=== PATIENT | male | born 1960 | race Caucasian/White ===

== ENCOUNTER 2018-03-16 14:22 | Observation (INO) | payer OTHER ==
[2018-03-16] MEDS ORDERED: Sodium Chloride 0.9% 10 ML Syringe FLUSH PRN (14:32)
[2018-03-16] MEDS ORDERED: Morphine 2 MG/ML Syringe IVPUSH ONE (14:32)
[2018-03-16] MEDS ORDERED: Sodium Chloride 0.9% 2.5 ML Syringe FLUSH PRN (14:32)
[2018-03-16] MEDS ORDERED: Nitroglycerin 2% Oint 1 GM UD Packet TOP ONE (14:32)
[2018-03-16] MEDS ORDERED: Ondansetron 4 MG/2 ML SDV IVPUSH ONE (14:32)
[2018-03-16] MEDS ORDERED: Aspirin 81 MG Tab.Chew PO ONE (14:32)
[2018-03-16] MEDS ORDERED: Sodium Chloride 0.9% 1,000 ML IV SCH (14:45)
[2018-03-16 15:02] LABS: CHLORIDE,CL 102 mmol/L (98-107); SODIUM,NA 138 mmol/L (136-148)
--- NOTE | 2018-03-16 15:18 | CR ---
EXAMINATION: Portable chest radiograph. HISTORY: Shortness of breath. FINDINGS: The trachea is midline. The cardiomediastinal silhouette is within normal limits. No pulmonary infilt rates, effusions or pneumothorax. Osseous structures appear unremarkable. IMPRESSION: No acute cardiopulmonary process.
--- NOTE | 2018-03-16 15:34 | EDM.PDOC ---
ED HPI GENERAL MEDICAL PROBLEM - General Chief Complaint: Chest Pain Stated Complaint: CHEST PAIN Time Seen by Provider: 03/16/18 14:27 - History of Present Illness INITIAL COMMENTS - FREE TEXT/NARRATIVE: HISTORY AND PHYSICAL: History of present illness: Patient is 57-year-old male sent from the [place] [facility] for chest pain his history of COPD states the chest discomfort 2 weeks he equivocates regarding associated shortness breath palpitations nausea vomiting or other complaints his EKG has nonspecific changes and no prior for comparison Review of systems: As per history of present illness and below otherwise all systems reviewed and negative. Past medical history: As per history of present illness and as reviewed below otherwise noncontributory. Surgical history: As per history of present illness and as reviewed below otherwise noncontributory. Social history: No reported history of drug or alcohol abuse. Family history: As per history of present illness and as reviewed below otherwise noncontributory. Physical exam: HEENT: Atraumatic, normocephalic, pupils reactive, negative for conjunctival pallor or scleral icterus, mucous membranes moist, throat clear, neck supple, nontender, trachea midline. Lungs: Clear to auscultation, breath sounds equal bilaterally, chest nontender. Heart: S1S2, regular, negative for clicks, rubs, or JVD. Abdomen: Soft, nondistended, nontender. Negative for masses or hepatosplenomegaly. Negative for costovertebral tenderness. Pelvis: Stable nontender. Genitourinary: Deferred. Rectal: Deferred. Extremities: Atraumatic, negative for cords or calf pain. Neurovascular unremarkable. Neuro: Awake, alert, oriented. Cranial nerves II through XII unremarkable. Cerebellum unremarkable. Motor and sensory unremarkable throughout. Exam nonfocal. Diagnostics: CBC CMP troponin PT/INR chest x-ray EKG Therapeutics: IV O2 monitor aspirin 324 mg by mouth Nitropaste 1 inch morphine sulfate 2 mg IV Zofran 4 mg IV Impression: #1 Chest pain #2 history of COPD Definitive disposition and diagnosis as appropriate pending reevaluation and review of above. chest Pain Score (Numeric/FACES): 4 - Related Data Allergies Allergy/AdvReac Type Severity Reaction Status Date / Time codeine Allergy Nausea and Verified 03/16/18 14:35 Vomiting Home Meds: Home Meds Albuterol [Proventil HFA] 90 mcg INH ASDIRECTED PRN 03/16/18 [History] Calcium Carbonate/Vitamin D3 [Calcium Carb 500 MG] 200 mg CHEW DAILY 03/16/18 [ History] Clotrimazole [Clotrimazole 1%] 1 dose TOP DAILY 03/16/18 [History] Furosemide 40 mg PO DAILY 03/16/18 [History] Ipratropium [place] [Atrovent Hfa] 17 mcg INH ASDIRECTED PRN 03/16/18 [History] Ketotifen [Ketotifen 0.025% Ophth Soln] 1 drop EYEBOTH DAILY 03/16/18 [History] Metoprolol Tartrate [Lopressor] 50 mg PO BID 03/16/18 [History] Mometasone Furoate [Asmanex] 220 mcg INH ASDIRECTED PRN 03/16/18 [History] Potassium Chloride 10 meq PO DAILY 03/16/18 [History] amLODIPine [Norvasc] 5 mg PO DAILY 03/16/18 [History] atorvaSTATin [Lipitor] 40 mg PO DAILY 03/16/18 [History] Past Medical History HEENT History: Reports: None Cardiovascular History: Reports: Hypertension Respiratory History: Reports: COPD Gastrointestinal History: Reports: None Genitourinary History: Reports: None Musculoskeletal History: Reports: None Neurological History: Reports: None Psychiatric History: Reports: None Endocrine/Metabolic History: Reports: Other (See Below) Other Endocrine/Metabolic History: pre-diabetic Hematologic History: Reports: None Immunologic History: Reports: None Oncologic (Cancer) History: Reports: None Dermatologic History: Reports: None - Infectious Disease History Infectious Disease History: Reports: Chicken Pox, MRSA - Past Surgical History Head Surgeries/Procedures: Reports: None HEENT Surgical History: Reports: None Cardiovascular Surgical History: Reports: None Respiratory Surgical History: Reports: None GI Surgical History: Reports: None Male Surgical History: Reports: None Endocrine Surgical History: Reports: None Neurological Surgical History: Reports: None Musculoskeletal Surgical History: Reports: None Oncologic Surgical History: Reports: None Dermatological Surgical History: Reports: None Social & Family History - Family History Family Medical History: Noncontributory - Tobacco Use Smoking Status *Q: Current Every Day Smoker Years of Tobacco use: 45 Packs/Tins Daily: 0.5 - Caffeine Use Caffeine Use: Reports: Coffee - Recreational Drug Use Recreational Drug Use: No ED ROS GENERAL - Review of Systems Review Of Systems: ROS reveals no pertinent complaints other than HPI. ED EXAM, GENERAL - Physical Exam Exam: See Below (See dictation) Course - Vital Signs Last Recorded V/S: Last Vital Signs Temp 36.0 C 03/16/18 14:35 Pulse 77 03/16/18 14:35 Resp 20 03/16/18 14:35 BP 172/100 H 03/16/18 14:35 Pulse Ox 94 L 03/16/18 14:35 - Orders/Labs/Meds Orders: Active Orders 24 hr Category Date Time Status Cardiac Monitoring [RC] . DIRECTED Care 03/16/18 14:30 Active EKG Documentation Completion [RC] STAT Care 03/16/18 14:30 Active Oxygen Therapy, ED [RC] ASDIRECTED Care 03/16/18 14:30 Active Pulse Oximetry [RC] ASDIRECTED Care 03/16/18 14:30 Active Sodium Chloride 0.9% [Normal Saline] 1,000 ml Med 03/16/18 14:45 Active IV STAT Sodium Chloride 0.9% [Saline Flush] Med 03/16/18 14:32 Active 10 ml FLUSH ASDIRECTED PRN Sodium Chloride 0.9% [Saline Flush] Med 03/16/18 14:32 Active 2.5 ml FLUSH ASDIRECTED PRN Saline Lock Insert [OM.PC] Stat Oth 03/16/18 14:30 Ordered Medication Orders Sodium Chloride (Normal Saline) 1,000 mls @ 125 mls/hr IV STAT KULDIP Last Admin: 03/16/18 14:54 Dose: 125 mls/hr Sodium Chloride (Saline Flush) 10 ml FLUSH ASDIRECTED PRN PRN Reason: Keep Vein Open Sodium Chloride (Saline Flush) 2.5 ml FLUSH ASDIRECTED PRN PRN Reason: Keep Vein Open Labs: Laboratory Tests 03/16/18 03/16/18 03/16/18 Range/Units 14:30 14:30 14:30 WBC 10.04 (4.0-11.0) K/uL RBC 5.16 (4.50-5.90) M/uL Hgb 16.5 (13.0-17.0) g/dL Hct 47.9 (38.0-50.0) % MCV 92.8 (80.0-98.0) fL MCH 32.0 (27.0-32.0) pg MCHC 34.4 (31.0-37.0) g/dL RDW Std Deviation 45.7 (28.0-62.0) fl RDW Coeff of Loren 14 (11.0-15.0) % Plt Count 214 (150-400) K/uL MPV 10.20 (7.40-12.00) fL Neut % (Auto) 61.7 (48.0-80.0) % Lymph % (Auto) 29.9 (16.0-40.0) % [place] % (Auto) 4.4 (0.0-15.0) % Eos % (Auto) 3.6 (0.0-7.0) % Baso % (Auto) 0.4 (0.0-1.5) % Neut # (Auto) 6.2 H (1.4-5.7) K/uL Lymph # (Auto) 3.0 H (0.6-2.4) K/uL [place] # (Auto) 0.4 (0.0-0.8) K/uL Eos # (Auto) 0.4 (0.0-0.7) K/uL Baso # (Auto) 0.0 (0.0-0.1) K/uL Nucleated RBC % 0.0 /100WBC Nucleated RBCs # 0 K/uL INR 0.95 Sodium 138 (136-148) mmol/L Potassium 3.9 (3.5-5.1) mmol/L Chloride 102 (98-107) mmol/L Carbon Dioxide 27.6 (21.0-32.0) mmol/L BUN 17 (7.0-18.0) mg/dL Creatinine 1.0 (0.8-1.3) mg/dL Est Cr Clr Drug Dosing 76.95 mL/min Estimated GFR (MDRD) > 60.0 ml/min Glucose 187 H (74-106) mg/dL Calcium 8.5 (8.5-10.1) mg/dL Total Bilirubin 0.3 (0.2-1.0) mg/dL AST 24 (15-37) IU/L ALT 51 (14-63) IU/L Alkaline Phosphatase 80 (46-116) U/L Troponin I < 0.050 (0.000-0.056) ng/mL B-Natriuretic Peptide (<100) PG/ML Total Protein 7.1 (6.4-8.2) g/dL Albumin 3.8 (3.4-5.0) g/dL Globulin 3.3 (2.0-3.5) g/dL Albumin/Globulin Ratio 1.2 L (1.3-2.8) 03/16/18 Range/Units 14:30 WBC (4.0-11.0) K/uL RBC (4.50-5.90) M/uL Hgb (13.0-17.0) g/dL Hct (38.0-50.0) % MCV (80.0-98.0) fL MCH (27.0-32.0) pg MCHC (31.0-37.0) g/dL RDW Std Deviation (28.0-62.0) fl RDW Coeff of Loren (11.0-15.0) % Plt Count (150-400) K/uL MPV (7.40-12.00) fL Neut % (Auto) (48.0-80.0) % Lymph % (Auto) (16.0-40.0) % [place] % (Auto) (0.0-15.0) % Eos % (Auto) (0.0-7.0) % Baso % (Auto) (0.0-1.5) % Neut # (Auto) (1.4-5.7) K/uL Lymph # (Auto) (0.6-2.4) K/uL [place] # (Auto) (0.0-0.8) K/uL Eos # (Auto) (0.0-0.7) K/uL Baso # (Auto) (0.0-0.1) K/uL Nucleated RBC % /100WBC Nucleated RBCs # K/uL INR Sodium (136-148) mmol/L Potassium (3.5-5.1) mmol/L Chloride (98-107) mmol/L Carbon Dioxide (21.0-32.0) mmol/L BUN (7.0-18.0) mg/dL Creatinine (0.8-1.3) mg/dL Est Cr Clr Drug Dosing mL/min Estimated GFR (MDRD) ml/min Glucose (74-106) mg/dL Calcium (8.5-10.1) mg/dL Total Bilirubin (0.2-1.0) mg/dL AST (15-37) IU/L ALT (14-63) IU/L Alkaline Phosphatase (46-116) U/L Troponin I (0.000-0.056) ng/mL B-Natriuretic Peptide 18 (<100) PG/ML Total Protein (6.4-8.2) g/dL Albumin (3.4-5.0) g/dL Globulin (2.0-3.5) g/dL Albumin/Globulin Ratio (1.3-2.8) Meds: Medications Generic Name Dose Route Start Last Admin Trade Name Freq PRN Reason Stop Dose Admin Sodium Chloride 1,000 mls @ 125 mls/hr 03/16/18 14:45 03/16/18 14:54 Normal Saline IV 125 mls/hr STAT KULDIP Administration Sodium Chloride 10 ml 03/16/18 14:32 Saline Flush FLUSH ASDIRECTED PRN Keep Vein Open Sodium Chloride 2.5 ml 03/16/18 14:32 Saline Flush FLUSH ASDIRECTED PRN Keep Vein Open Discontinued Medications Generic Name Dose Route Start Last Admin Trade Name Freq PRN Reason Stop Dose Admin Aspirin 324 mg 03/16/18 14:32 03/16/18 15:02 Aspirin PO 03/16/18 14:33 324 mg ONETIME ONE Administration Morphine Sulfate 2 mg 03/16/18 14:32 03/16/18 14:59 Morphine IVPUSH 03/16/18 14:33 2 mg ONETIME ONE Administration Nitroglycerin 1 gm 03/16/18 14:32 03/16/18 15:04 Nitro-Bid 2% TOP 03/16/18 14:33 1 gm ONETIME ONE Administration Ondansetron HCl 4 mg 03/16/18 14:32 03/16/18 14:56 Zofran IVPUSH 03/16/18 14:33 4 mg ONETIME ONE Administration Departure - Departure Time of Disposition: 15:33 Disposition: Refer to Observation Condition: Good Clinical Impression: Chest pain - Discharge Information Referrals: PCP,None [Primary Care Provider] - - My Orders Last 24 Hours: My Active Orders 03/16/18 14:30 Cardiac Monitoring [RC] . DIRECTED EKG Documentation Completion [RC] STAT Oxygen Therapy, ED [RC] ASDIRECTED Pulse Oximetry [RC] ASDIRECTED Saline Lock Insert [OM.PC] Stat 03/16/18 14:32 Sodium Chloride 0.9% [Saline Flush] 10 ml FLUSH ASDIRECTED PRN Sodium Chloride 0.9% [Saline Flush] 2.5 ml FLUSH ASDIRECTED PRN 03/16/18 14:45 Sodium Chloride 0.9% [Normal Saline] 1,000 ml IV STAT - Assessment/Plan Last 24 Hours: My Active Orders 03/16/18 14:30 Cardiac Monitoring [RC] . DIRECTED EKG Documentation Completion [RC] STAT Oxygen Therapy, ED [RC] ASDIRECTED Pulse Oximetry [RC] ASDIRECTED Saline Lock Insert [OM.PC] Stat 03/16/18 14:32 Sodium Chloride 0.9% [Saline Flush] 10 ml FLUSH ASDIRECTED PRN Sodium Chloride 0.9% [Saline Flush] 2.5 ml FLUSH ASDIRECTED PRN 03/16/18 14:45 Sodium Chloride 0.9% [Normal Saline] 1,000 ml IV STAT
[2018-03-16] MEDS ORDERED: Bacitracin Oint 1 GM U/D Packet TOP ONE (15:38)
[2018-03-16] MEDS ORDERED: Albuterol/Ipratropium 3.0-0.5 MG/3 ML Neb Soln NEB PRN (16:27)
[2018-03-16] MEDS ORDERED: Ondansetron 4 MG/2 ML SDV IVPUSH PRN (16:27)
[2018-03-16] MEDS ORDERED: Enoxaparin 40 MG/0.4 ML Syringe SUBCUT SCH (16:30)
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
[2018-03-16] MEDS: Insulin Aspart 100 Units/ML 3 ML Pen SUBCUT SCH (17:15)
[2018-03-16] MEDS ORDERED: Albuterol 8 GM Inhaler INH PRN (17:48)
[2018-03-16] MEDS: Loratadine 10 MG Tab PO SCH (18:45)
[2018-03-16] MEDS: Acetaminophen 325 MG Tab PO PRN (20:19)
[2018-03-16] MEDS: Metoprolol Tartrate 50 MG Tab PO SCH (20:20)
[2018-03-17] MEDS: Acetaminophen 325 MG Tab PO PRN (06:16)
[2018-03-17] MEDS: Insulin Aspart 100 Units/ML 3 ML Pen SUBCUT SCH (06:38)
[2018-03-17] MEDS ORDERED: Furosemide 40 MG Tab PO SCH (09:00)
[2018-03-17] MEDS ORDERED: Aspirin 81 MG Tab.Chew PO SCH (09:00)
[2018-03-17] MEDS ORDERED: amLODIPine 5 MG Tab PO SCH (09:00)
[2018-03-17] MEDS ORDERED: atorvaSTATin 40 MG Tab PO SCH (09:00)
[2018-03-17] MEDS ORDERED: Potassium Chloride 10 MEQ Tab.ER PO SCH (09:00)
[2018-03-17] MEDS: Loratadine 10 MG Tab PO SCH (09:48)
[2018-03-17] MEDS: Metoprolol Tartrate 50 MG Tab PO SCH (09:53)
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
== END 2018-03-17 11:55 | disposition home or self-care (01) ==
LOC: MW.ED 14:22 → MW.MS 16:25 → UNDODISOB 03-17 11:55
PROVIDERS: ADMIT Internal Medicine; ATTEND Internal Medicine
DX: R07.2 Precordial pain (principal); E11.9 Type 2 diabetes mellitus without complications; I10 Essential (primary) hypertension; J44.9 Chronic obstructive pulmonary disease, unspecified; E78.00 Pure hypercholesterolemia, unspecified; F17.210 Nicotine dependence, cigarettes, uncomplicated; E66.9 Obesity, unspecified; Z79.82 Long term (current) use of aspirin; Z79.899 Other long term (current) drug therapy; Z88.5 Allergy status to narcotic agent
CPT/HCPCS: 36415; 71045; 80053; 82962; 83880; 84484; 85025; 85610; 93005; 96361; 96374; 96375; 99285; A9270; J1650; J1815; J2270; J2405; J7040; 96372; 99284; G0378